=== PATIENT | female | born 1940 | race Caucasian/White ===

== ENCOUNTER 2017-10-26 07:02 | Day surgery (SDC) | payer OTHER ==
[~2017-10-26] VITALS: Ht 165.1 cm; Wt 63.3 kg
[2017-10-26] MEDS ORDERED: Aspirin EC81 MG (09:19)
[2017-10-26] MEDS ORDERED: ESCI20 (09:19)
[2017-10-26] MEDS ORDERED: DONE10 (09:19)
[2017-10-26] MEDS ORDERED: OMEPRAZOLE MAGN20 MG (09:20)
[2017-10-26] MEDS ORDERED: HYDCHL25 (09:20)
[2017-10-26] MEDS ORDERED: MEMA10 (09:20)
[2017-10-26] MEDS ORDERED: LOSARTAN POTAS100 MG (09:20)
== END 2017-10-26 09:16 | disposition home or self-care (01) ==
LOC: ORSCSDS 07:02
PROVIDERS: Ophthalmology
PROC: 08RK3JZ Replacement of Left Lens with Synthetic Substitute, Percutaneous Approach (ICD-10-PCS; principal; 2017-10-26 08:30)
DX: H25.12 Age-related nuclear cataract, left eye (principal); E11.9 Type 2 diabetes mellitus without complications; Z79.82 Long term (current) use of aspirin; Z79.84 Long term (current) use of oral hypoglycemic drugs; Z79.899 Other long term (current) drug therapy
CPT/HCPCS: 82947; J2250; J3010; J3301; V2632

== ENCOUNTER → 2017-11-14 | Outpatient (CLI) | payer OTHER ==
[~2017-11-14] MED LIST: Aspirin EC81 MG; DONE10; ESCI20; HYDCHL25; LOSARTAN POTAS100 MG; MEMA10; OMEPRAZOLE MAGN20 MG
[2017-11-14 19:30] LABS: Bilirubin, Urine Neg (Neg); Blood, Urine 1+ (Neg); Glucose Qualitative, Urine Neg (Neg); Ketones, Urine Neg (Neg); Leukocyte Esterase, Urine 3+ (Neg); Nitrite, Urine Pos (Neg); Protein, Urine 1+ (Neg); Specific Gravity, Urine 1.015 (1.003-1.022); Urobilinogen, Urine 1+ (Normal)
[2017-11-14 19:37] LABS: Appearance, Urine Clear (Clear); Color, Urine Yellow (P-Yellow)
[2017-11-14 19:38] LABS: White Blood Cells, Urine 25-50 /hpf (0-5)
[2017-11-14 19:39] LABS: Bacteria Many /hpf; Squamous Epithelial Cells Few /hpf (Few)
== END | disposition home or self-care (01) ==
LOC: LAB SHORT 15:00 → LAB 15:00
PROVIDERS: Internal Medicine
DX: N39.0 Urinary tract infection, site not specified (principal)
CPT/HCPCS: 81001; 87077; 87086; 87186

== ENCOUNTER 2018-01-01 17:28 | Observation (INO) | payer OTHER ==
[~2018-01-01] VITALS: Ht 165.1 cm; Wt 67.5 kg
[~2018-01-01 17:28] MED LIST changes: -Aspirin EC81 MG; +Aspirin EC81 MG PO; -DONE10; +DONE10 PO; -ESCI20; +ESCI20 PO; -HYDCHL25; +HYDCHL25 PO; -LOSARTAN POTAS100 MG; +LOSARTAN POTAS100 MG PO; -MEMA10; +MEMA10 PO; -OMEPRAZOLE MAGN20 MG; +OMEPRAZOLE MAGN20 MG PO
[2018-01-01 18:15] LABS: Source, Urine Catheter
[2018-01-01 18:19] LABS: Blood, Urine Neg (Neg); Glucose Qualitative, Urine Neg (Neg); Ketones, Urine Neg (Neg); Leukocyte Esterase, Urine Neg (Neg); Nitrite, Urine Neg (Neg); Protein, Urine 1+ (Neg); Urobilinogen, Urine 2+ (Normal)
[2018-01-01 18:20] LABS: BASOPHILS ABSOLUTE AUTO 0.02 K/mm3 (0.00-0.23); BASOPHILS PERCENT AUTO 0 % (0-2); EOSINOPHILS ABSOLUTE AUTO 0.14 K/mm3 (0.00-0.68); EOSINOPHILS PERCENT AUTO 2 % (0-6); Hematocrit 31.3 % (33.0-51.0); Hemoglobin 10.4 g/dL (11.5-16.0); IMMATURE GRAN ABSOLUTE AUTO 0.02 K/mm3 (0.00-0.10); IMMATURE GRAN PERCENT AUTO 0 % (0-1); LYMPHOCYTES ABSOLUTE AUTO 1.79 K/mm3 (0.84-5.20); LYMPHOCYTES PERCENT AUTO 21 % (21-46); MONOCYTES ABSOLUTE AUTO 0.91 K/mm3 (0.16-1.47); MONOCYTES PERCENT AUTO 11 % (4-13); Mean Corpuscular HGB 29.7 pg (26.0-34.0); Mean Corpuscular HGB Conc 33.2 g/dL (31.5-36.5); Mean Corpuscular Volume 89 fL (80-100); Mean Platelet Volume 8.7 fL (9.1-12.4); NEUTROPHILS ABSOLUTE AUTO 5.48 K/mm3 (1.96-9.15); NEUTROPHILS PERCENT AUTO 66 % (41-73); Platelet Count 155 K/mm3 (150-400); RDW Coefficient Variation 16.1 % (11.7-14.2); RDW Standard Deviation 53.3 fL (35.1-46.3); White Blood Cell Count 8.36 K/mm3 (4.00-11.30)
[2018-01-01 18:26] LABS: Appearance, Urine Clear (Clear); Color, Urine Yellow (P-Yellow)
[2018-01-01 18:32] LABS: Albumin, Blood 3.1 g/dL (3.4-5.0); Albumin/Globulin Ratio 0.8 (0.8-1.8); Bun/Creatinine Ratio 26.1 (12.0-20.0); Calcium, Blood 8.6 mg/dL (8.5-10.1); Creatinine, Blood 1.84 mg/dL (0.40-1.00); Globulin, Blood 3.7 g/dL (2.2-4.0); Potassium, Blood 3.9 mmol/L (3.5-5.5); Total Protein, Blood 6.8 g/dL (6.4-8.2)
[2018-01-02] MEDS ORDERED: MELA3 PO (01:08)
[2018-01-02] MEDS ORDERED: MIRALAX17 GM PO (01:10)
[2018-01-02] MEDS ORDERED: ACET325 PO (01:15)
[2018-01-02] MEDS ORDERED: BISA10S PR (01:16)
[2018-01-02] MEDS ORDERED: LOPE2C PO (01:17)
[2018-01-02] MEDS ORDERED: TUMS200 MG PO (01:18)
[2018-01-02 04:57] LABS: Hematocrit 30.6 % (33.0-51.0); Mean Corpuscular HGB 29.2 pg (26.0-34.0); Mean Corpuscular HGB Conc 32.7 g/dL (31.5-36.5); Mean Corpuscular Volume 90 fL (80-100); Mean Platelet Volume 8.9 fL (9.1-12.4); Platelet Count 124 K/mm3 (150-400); RDW Coefficient Variation 16.1 % (11.7-14.2); RDW Standard Deviation 53.6 fL (35.1-46.3); Red Blood Cell Count 3.42 M/mm3 (3.80-5.20); White Blood Cell Count 5.95 K/mm3 (4.00-11.30)
[2018-01-02 05:15] LABS: Albumin, Blood 2.9 g/dL (3.4-5.0); Albumin/Globulin Ratio 0.8 (0.8-1.8); Bilirubin, Total 1.1 mg/dL (0.1-1.0); Bun/Creatinine Ratio 31.6 (12.0-20.0); Calcium, Blood 8.4 mg/dL (8.5-10.1); Creatinine, Blood 1.33 mg/dL (0.40-1.00); Globulin, Blood 3.6 g/dL (2.2-4.0); Potassium, Blood 3.5 mmol/L (3.5-5.5); Total Protein, Blood 6.5 g/dL (6.4-8.2)
[2018-01-03 04:55] LABS: Albumin, Blood 2.9 g/dL (3.4-5.0); Anion Gap 9 mmol/L (6-16); Blood Urea Nitrogen 28 mg/dL (8-24); Bun/Creatinine Ratio 30.5 (12.0-20.0); CO2, Blood 23 mmol/L (21-32); Calcium, Blood 8.4 mg/dL (8.5-10.1); Chloride, Blood 108 mmol/L (98-108); Creatinine, Blood 0.92 mg/dL (0.40-1.00); Glomerular Filtration Rate >60 (60-); Glucose, Blood 134 mg/dL (70-99); Potassium, Blood 3.5 mmol/L (3.5-5.5); Sodium, Blood 140 mmol/L (136-145)
[2018-01-03] MEDS ORDERED: DONE5 PO (12:46)
[2018-01-03] MEDS ORDERED: ACET500 PO (12:46)
== END 2018-01-03 13:09 | disposition home or self-care (01) ==
LOC: ER 17:28 → MEDS 19:29 → ENPENDDIS 01-03 13:04 → MEDS 01-03 13:09
PROVIDERS: Emergency Medicine; Internal Medicine; Internal Medicine Endocrinology, Diabetes & Metabolism
DX: G92 Toxic encephalopathy (principal); N17.9 Acute kidney failure, unspecified; E86.0 Dehydration; F03.90 Unspecified dementia, unspecified severity, without behavioral disturbance, psychotic disturbance, mood disturbance, and anxiety; K21.9 Gastro-esophageal reflux disease without esophagitis; M25.511 Pain in right shoulder; I10 Essential (primary) hypertension; E11.65 Type 2 diabetes mellitus with hyperglycemia; R53.1 Weakness; S22.31XA Fracture of one rib, right side, initial encounter for closed fracture; S42.001A Fracture of unspecified part of right clavicle, initial encounter for closed fracture; Z79.82 Long term (current) use of aspirin; Z88.0 Allergy status to penicillin; Z79.899 Other long term (current) drug therapy; Z88.5 Allergy status to narcotic agent; Z88.8 Allergy status to other drugs, medicaments and biological substances
CPT/HCPCS: 36415; 71045; 73030; 80053; 80069; 82550; 82947; 83036; 85025; 85027; 96360; 96361; 96372; 96374; 96376; 97110; 97116; 97161; 97166; 99285; G0378; G0515; G8978; G8979; G8987; G8988; J1650; J3010; J7030; P9612

== ENCOUNTER → 2018-08-03 | Outpatient (CLI) | payer OTHER ==
[~2018-08-03] MED LIST changes: +ACET325 PO; +ACET500 PO; +BISA10S PR; +DONE5 PO; +LOPE2C PO; +MELA3 PO; +MIRALAX17 GM PO; +TUMS200 MG PO
[2018-08-04 11:22] LABS: Source, Urine Voided
[2018-08-04 11:38] LABS: Appearance, Urine Cloudy (Clear); Bilirubin, Urine Neg (Neg); Blood, Urine 1+ (Neg); Color, Urine Yellow (P-Yellow); Glucose Qualitative, Urine 3+ (Neg); Ketones, Urine Neg (Neg); Leukocyte Esterase, Urine 3+ (Neg); Nitrite, Urine Pos (Neg); Protein, Urine 2+ (Neg); Specific Gravity, Urine 1.015 (1.003-1.022); Urobilinogen, Urine NORM (Normal)
[2018-08-04 12:12] LABS: Amorphous Heavy ({null, 0-Heavy}); Bacteria Mod /hpf; Granular Casts Rare /lpf ({null, 0}); Red Blood Cells, Urine 0-2 /hpf (0-2); Squamous Epithelial Cells Few /hpf (Few); White Blood Cells, Urine 25-50 /hpf (0-5)
== END | disposition home or self-care (01) ==
LOC: LAB 17:00 → LAB SHORT 17:00
PROVIDERS: Internal Medicine
DX: N39.0 Urinary tract infection, site not specified (principal)
CPT/HCPCS: 81001; 87077; 87086; 87186

== ENCOUNTER → 2019-01-21 | Outpatient (CLI) | payer MEDICARE ==
[~2019-01-21] MED LIST changes: -ACET325 PO; +Anti-Diarrheal2 MG PO; -Aspirin EC81 MG PO; +BASAGLAR K100 UNIT/1 SC; +Calmoseptine Oi71 GM TOP; +Cetirizine HCl10 MG PO; -DONE5 PO; +DONEPEZIL HCL5 M1 PO; +Eucerin Creme454 GM TOP; +FIRVANQ50 MG/1 ML PO; +Florastor250 MG PO; +LOSA50 PO; -LOSARTAN POTAS100 MG PO; +Lasix40 MG PO; -MELA3 PO; +MELATONIN5 M1 PO; +METF500 PO; +Milk Of Ma400 MG/5 M PO; -OMEPRAZOLE MAGN20 MG PO; +OMEPRAZOLE20 MG PO; +ONE DAILY COMP1 EACH PO; +TRIDERM28.4 GM TOP; +TUMS500 MG PO; +Triple Antibio1 EACH TOP
[2019-01-21 16:07] LABS: BASOPHILS ABSOLUTE AUTO 0.02 K/mm3 (0.00-0.23); BASOPHILS PERCENT AUTO 0 % (0-2); EOSINOPHILS PERCENT AUTO 2 % (0-6); Hematocrit 33.3 % (33.0-51.0); Hemoglobin 10.9 g/dL (11.5-16.0); IMMATURE GRAN ABSOLUTE AUTO 0.01 K/mm3 (0.00-0.10); IMMATURE GRAN PERCENT AUTO 0 % (0-1); LYMPHOCYTES PERCENT AUTO 27 % (21-46); MONOCYTES ABSOLUTE AUTO 0.75 K/mm3 (0.16-1.47); MONOCYTES PERCENT AUTO 15 % (4-13); Mean Corpuscular HGB 30.3 pg (26.0-34.0); Mean Corpuscular HGB Conc 32.7 g/dL (31.5-36.5); Mean Corpuscular Volume 93 fL (80-100); Mean Platelet Volume 8.8 fL (9.1-12.4); NEUTROPHILS ABSOLUTE AUTO 2.73 K/mm3 (1.96-9.15); NEUTROPHILS PERCENT AUTO 56 % (41-73); Platelet Count 141 K/mm3 (150-400); RDW Standard Deviation 54.4 fL (35.1-46.3); White Blood Cell Count 4.91 K/mm3 (4.00-11.30)
[2019-01-21 17:11] LABS: Alanine Aminotransfer (ALT/SGP 29 U/L (12-78); Albumin, Blood 2.9 g/dL (3.4-5.0); Albumin/Globulin Ratio 0.8 (0.8-1.8); Alk Phos 138 U/L (50-136); Anion Gap 5 mmol/L (6-16); Aspartate Aminotrans (AST/SGOT 48 U/L (12-37); Bilirubin, Total 1.1 mg/dL (0.1-1.0); Blood Urea Nitrogen 8 mg/dL (8-24); Bun/Creatinine Ratio 11.4 (12.0-20.0); CO2, Blood 26 mmol/L (21-32); Calcium, Blood 8.7 mg/dL (8.5-10.1); Chloride, Blood 102 mmol/L (98-108); Globulin, Blood 3.5 g/dL (2.2-4.0); Glomerular Filtration Rate >60 (60-); Glucose, Blood 134 mg/dL (70-99); Potassium, Blood 3.5 mmol/L (3.5-5.5); Sodium, Blood 133 mmol/L (136-145); Total Protein, Blood 6.4 g/dL (6.4-8.2)
== END | disposition home or self-care (01) ==
LOC: LAB EV 16:01 → LAB SHORT 16:01
PROVIDERS: Physician Assistant
DX: L03.119 Cellulitis of unspecified part of limb (principal); R22.43 Localized swelling, mass and lump, lower limb, bilateral
CPT/HCPCS: 80053; 83880; 85025

== ENCOUNTER 2019-03-11 09:11 | Inpatient (IN) | payer MEDICARE ==
[~2019-03-11] VITALS: Ht 165.1 cm; Wt 69.5 kg
[~2019-03-11 09:11] MED LIST changes: -ACET500 PO; -Anti-Diarrheal2 MG PO; -BASAGLAR K100 UNIT/1 SC; -BISA10S PR; -Calmoseptine Oi71 GM TOP; -Cetirizine HCl10 MG PO; -DONEPEZIL HCL5 M1 PO; -ESCI20 PO; -Eucerin Creme454 GM TOP; -FIRVANQ50 MG/1 ML PO; -Florastor250 MG PO; -LOSA50 PO; -Lasix40 MG PO; -MELATONIN5 M1 PO; -MEMA10 PO; -METF500 PO; -MIRALAX17 GM PO; -Milk Of Ma400 MG/5 M PO; -OMEPRAZOLE20 MG PO; -ONE DAILY COMP1 EACH PO; -TRIDERM28.4 GM TOP; -TUMS500 MG PO; -Triple Antibio1 EACH TOP
[2019-03-11 10:03] LABS: BASOPHILS ABSOLUTE AUTO 0.02 K/mm3 (0.00-0.23); BASOPHILS PERCENT AUTO 0 % (0-2); EOSINOPHILS ABSOLUTE AUTO 0.03 K/mm3 (0.00-0.68); EOSINOPHILS PERCENT AUTO 0 % (0-6); Hematocrit 34.7 % (33.0-51.0); Hemoglobin 11.2 g/dL (11.5-16.0); IMMATURE GRAN ABSOLUTE AUTO 0.03 K/mm3 (0.00-0.10); IMMATURE GRAN PERCENT AUTO 0 % (0-1); LYMPHOCYTES ABSOLUTE AUTO 1.13 K/mm3 (0.84-5.20); LYMPHOCYTES PERCENT AUTO 15 % (21-46); MONOCYTES ABSOLUTE AUTO 0.84 K/mm3 (0.16-1.47); MONOCYTES PERCENT AUTO 11 % (4-13); Mean Corpuscular HGB 30.8 pg (26.0-34.0); Mean Corpuscular HGB Conc 32.3 g/dL (31.5-36.5); Mean Corpuscular Volume 95 fL (80-100); Mean Platelet Volume 9.2 fL (9.1-12.4); NEUTROPHILS ABSOLUTE AUTO 5.53 K/mm3 (1.96-9.15); NEUTROPHILS PERCENT AUTO 73 % (41-73); Platelet Count 121 K/mm3 (150-400); RDW Coefficient Variation 18.1 % (11.7-14.2); RDW Standard Deviation 63.6 fL (35.1-46.3); Red Blood Cell Count 3.64 M/mm3 (3.80-5.20); White Blood Cell Count 7.58 K/mm3 (4.00-11.30)
[2019-03-11 10:12] LABS: Alanine Aminotransfer (ALT/SGP 21 U/L (12-78); Albumin, Blood 2.7 g/dL (3.4-5.0); Albumin/Globulin Ratio 0.7 (0.8-1.8); Alk Phos 119 U/L (50-136); Anion Gap 7 mmol/L (6-16); Aspartate Aminotrans (AST/SGOT 43 U/L (12-37); Bilirubin, Total 2.1 mg/dL (0.1-1.0); Blood Urea Nitrogen 19 mg/dL (8-24); Bun/Creatinine Ratio 24.1 (12.0-20.0); CO2, Blood 24 mmol/L (21-32); Calcium, Blood 8.8 mg/dL (8.5-10.1); Chloride, Blood 112 mmol/L (98-108); Creatinine, Blood 0.79 mg/dL (0.40-1.00); Globulin, Blood 3.8 g/dL (2.2-4.0); Glomerular Filtration Rate >60 (60-); Glucose, Blood 119 mg/dL (70-99); Potassium, Blood 3.9 mmol/L (3.5-5.5); Sodium, Blood 143 mmol/L (136-145); Total Protein, Blood 6.5 g/dL (6.4-8.2)
[2019-03-11 11:10] LABS: Source, Urine Catheter
[2019-03-11 11:16] LABS: Bilirubin, Urine Neg (Neg); Blood, Urine 1+ (Neg); Glucose Qualitative, Urine Neg (Neg); Ketones, Urine 1+ (Neg); Leukocyte Esterase, Urine 2+ (Neg); Nitrite, Urine Pos (Neg); Protein, Urine 2+ (Neg); Urobilinogen, Urine 2+ (Normal); pH, Urine 6.5 (5.0-8.0)
[2019-03-11 11:31] LABS: Appearance, Urine Cloudy (Clear); Color, Urine Yellow (P-Yellow)
[2019-03-11 11:32] LABS: Red Blood Cells, Urine 0-2 /hpf (0-2)
[2019-03-11 11:33] LABS: Bacteria Many /hpf; Squamous Epithelial Cells Few /hpf (Few)
[2019-03-11] MEDS ORDERED: ESCI20 PO (12:27)
[2019-03-11] MEDS ORDERED: LOSA50 PO (12:28)
[2019-03-11] MEDS ORDERED: MEMA10 PO (12:28)
[2019-03-11] MEDS ORDERED: DONEPEZIL HCL5 M1 PO (12:29)
[2019-03-11] MEDS ORDERED: Lasix40 MG PO (12:29)
[2019-03-11] MEDS ORDERED: BASAGLAR K100 UNIT/1 SC (12:30)
[2019-03-11] MEDS ORDERED: METF500 PO (12:30)
[2019-03-11] MEDS ORDERED: OMEPRAZOLE20 MG PO (12:40)
[2019-03-11] MEDS ORDERED: MELATONIN5 M1 PO (12:40)
[2019-03-11] MEDS ORDERED: MIRALAX17 GM PO (12:40)
[2019-03-11] MEDS ORDERED: ACET500 PO (12:42)
[2019-03-11] MEDS ORDERED: BISA10S PR (12:42)
[2019-03-11] MEDS ORDERED: Cetirizine HCl10 MG PO (12:43)
[2019-03-11] MEDS ORDERED: ONE DAILY COMP1 EACH PO (12:47)
[2019-03-11] MEDS ORDERED: TRIDERM28.4 GM TOP (12:49)
[2019-03-11] MEDS ORDERED: Eucerin Creme454 GM TOP (12:49)
[2019-03-11] MEDS ORDERED: Triple Antibio1 EACH TOP (12:50)
[2019-03-11] MEDS ORDERED: TUMS500 MG PO (12:51)
[2019-03-11] MEDS ORDERED: Anti-Diarrheal2 MG PO (12:52)
[2019-03-11] MEDS ORDERED: Milk Of Ma400 MG/5 M PO (12:52)
[2019-03-11] MEDS ORDERED: Calmoseptine Oi71 GM TOP (12:53)
--- NOTE | 2019-03-11 16:38 | NUR ---
SHIFT SUMMARY: PT ADMITTED FROM THE ER THIS AFTERNOON AND IS ALERT TO SELF AND ABLE TO SAY "YES" AND "NO" AND DENIES PAIN. PER HER SON SHE HAS ADVANCED DEMENTIA AND LIVES AT [facility] WHERE SHE HAS HAD INCREASED CONFUSION AND WEAKNESS. PT HAS WOUNDS TO HER BLE WHICH THE SON REPORTS WERE BEING MANAGED BY [facility]. THE WOUNDS WERE CLEANSED AND CLEAN DRESSINGS WERE APPLIED, DR FOWLER GAVE VERBAL ORDER FOR HERNAN TO PROMOTE WOUND HEALING. ORAL CARE WAS COMPLETED PT DENTURES WERE CAKED IN OLD DRY FOOD AND PT REPORTS HER MOUTH WAS SORE DURING BRUSHING, THE SON WAS NOTIFIED.PT DECLINED HER FOOD TRAY BUT DID TAKE A FEW BITES OF THE PEACHES. PT IS INC. OF B/B. PT WAS REMINDED TO USE CALL LIGHT FOR HELP BUT WAS UNABLE TO VERBALIZE AN UNDERSTANDING OF ITS USE. BED ALARM IS IN PLACE. PT IS RESTING IN BED.
--- NOTE | 2019-03-11 19:26 | NUR ---
PATIENT PULLED IV AND SECOND IV PLACED BY DAY RN AND WRAPPED, PATIENT PULLED SECOND IV.
--- NOTE | 2019-03-12 03:07 | NUR ---
SHIFT SUMMARY PATIENT HAD NO ACUTE CHANGES OBSERVED THIS SHIFT. PULLED TWO PIVS ON DAY SHIFT. NEW PIV PLACED AND NS INFUSING AT 100mL/HR. IV ABX INFUSED. AXO TO SELF, HX DEMENTIA. CBG 110 AND BEDREST. TAKES MEDICATION WHOLE WITH WATER. DRESSING TO BLE INTACT. ANSWERS YES/NO QUESTIONS. DENIES PAIN, SOB, AND N/V. VSS/AFEBRILE. CALL LIGHT IN REACH. BED IN LOWEST POSITION. WILL CONTINUE TO MONITOR UNTIL DAY SHIFT NURSE ASSUMES CARE.
[2019-03-12 04:49] LABS: BASOPHILS ABSOLUTE AUTO 0.02 K/mm3 (0.00-0.23); BASOPHILS PERCENT AUTO 0 % (0-2); EOSINOPHILS PERCENT AUTO 5 % (0-6); Hematocrit 30.2 % (33.0-51.0); Hemoglobin 9.8 g/dL (11.5-16.0); IMMATURE GRAN ABSOLUTE AUTO 0.02 K/mm3 (0.00-0.10); IMMATURE GRAN PERCENT AUTO 0 % (0-1); LYMPHOCYTES ABSOLUTE AUTO 1.55 K/mm3 (0.84-5.20); LYMPHOCYTES PERCENT AUTO 26 % (21-46); MONOCYTES ABSOLUTE AUTO 0.77 K/mm3 (0.16-1.47); MONOCYTES PERCENT AUTO 13 % (4-13); Mean Corpuscular HGB 30.6 pg (26.0-34.0); Mean Corpuscular HGB Conc 32.5 g/dL (31.5-36.5); Mean Corpuscular Volume 94 fL (80-100); Mean Platelet Volume 9.7 fL (9.1-12.4); NEUTROPHILS PERCENT AUTO 56 % (41-73); Platelet Count 104 K/mm3 (150-400); RDW Coefficient Variation 18.3 % (11.7-14.2); RDW Standard Deviation 63.4 fL (35.1-46.3); White Blood Cell Count 6.06 K/mm3 (4.00-11.30)
[2019-03-12 05:07] LABS: Alanine Aminotransfer (ALT/SGP 16 U/L (12-78); Albumin, Blood 2.3 g/dL (3.4-5.0); Albumin/Globulin Ratio 0.7 (0.8-1.8); Alk Phos 95 U/L (50-136); Anion Gap 7 mmol/L (6-16); Aspartate Aminotrans (AST/SGOT 34 U/L (12-37); Bilirubin, Total 1.4 mg/dL (0.1-1.0); Blood Urea Nitrogen 22 mg/dL (8-24); Bun/Creatinine Ratio 28.4 (12.0-20.0); CO2, Blood 24 mmol/L (21-32); Calcium, Blood 8.2 mg/dL (8.5-10.1); Chloride, Blood 114 mmol/L (98-108); Creatinine, Blood 0.78 mg/dL (0.40-1.00); Globulin, Blood 3.4 g/dL (2.2-4.0); Glomerular Filtration Rate >60 (60-); Glucose, Blood 76 mg/dL (70-99); Potassium, Blood 3.5 mmol/L (3.5-5.5); Sodium, Blood 145 mmol/L (136-145); Total Protein, Blood 5.7 g/dL (6.4-8.2)
--- NOTE | 2019-03-12 16:51 | NUR ---
SHIFT SUMMARY: PT HAS BEEN ALERT TO SELF AT BASELINE WITH ONGOING CONFUSION. SHE IS PLEASANT AND COOPERATIVE WITH CARE BUT REMOVED HER IV LINE AGAIN TODAY. WAS NOTIFIED AND RECEIVED ORDERS TO DC IV FLUIDS AND MEDS AND START ON PO ABO. DRESSING TO BLE WERE CHANGED WITH DR SOTO AT THE BEDSIDE AND RECEIVED VERBAL ORDERS FOR TX REFLECTED ON THE MAR. PT CONTINUES TO HAVE A POOR APPETITE BUT DID EAT A SMALL AMOUNT FOR HER MEALS WITH SOME ENCOURAGEMENT. SON HAS VISITED A FEW TIMES TODAY AND CONTINUES TO BE AN ADVACATE FOR HIS MOM. SOME EDUCATION WAS COMPLETED WITH SON AND PT ABOUT NUTRITION TO HELP WITH WOUND HEALING. PT WORKED WITH THERAPY TODAY AND WAS ABLE TO AMBULATE WITH A FWW. PT WAS UP TO RECLINER IN HALLWAY MOST OF THE AFTERNOON AND PT IS NOW UP IN RECLINER WATCHING TV WITH HER SON.
--- NOTE | 2019-03-13 05:41 | NUR ---
SUMMARY: PT IS ALERT TO SELF AND PLEASANT/COOPERATIVE W/CARE BUT IS FORGETFULL AND IMPULLSIVE OOB OFTEN. SHE SPENDS TIME IN THE RECLINER AND IS UP W/SBA AND FWW. ATTENDS CHANGED PRN FOR INCONTINENCE AND X2 LINEN CHANGES WERE REQUIRED. CELLULITIS PERSISTS TO BLE'S, SEE PHOTOS FOR DETAILS AND DX'S REMAIN C/D/I. PO ABX RECIEVED AND ENCOURAGED PO INTAKE FOR WOUND HEALING. NO ACUTE CHANGES. VSS AND AFEBRILE. WCTM AND REPORT TO DAY RN.
--- NOTE | 2019-03-13 17:37 | NUR ---
SHIFT SUMMARY: PT HAS BEEN ALERT AND ORIENTED AT BASELINE BUT MUCH MORE RELAXED TODAY. SHE HAS BEEN UP AMBUALTING IN THE GREEN WITH PT AND NURSING STAFF AND DOES NOT APPEAR TO HAVE ANY ISSUES WITH AMBULATION SHE DOES NEED QUEING FOR SAFETY AWARENESS. PT CONTINUES TO BE INC OF B/B BUT DOES USE THE TOILET IF OFFERED. DRESSINGS TO BLE WERE CHANGED AND SHOW IMPROVEMENT FROM YESTERDAY, DR SOTO WAS MADE AWARE. PT WAS UP WITH NURSING STAFF COLORING FOR MOST OF THE AFTERNOON AND THEN HAD A SHORT VISIT WITH HER SON. SHE IS NOW RESTING IN BED WATCHING TV.
--- NOTE | 2019-03-14 03:48 | NUR ---
SUMMARY: PT HAS BEEN MORE ORIENTED THIS SHIFT, IS PLEASANT AND COOPERATIVE W/CARE AND IS INTERACTING W/STAFF APPROPRIATELY. STRENGTH HAS IMPROVED AND SHE'S BEEN AMBULATING IN ROOM AND HALLS W/STEADY GAIT OBSERVED AND ONLY OCCASIONAL NEED FOR VERBAL CUES FOR SAFETY AWARENESS. PT HAS USED TOILET W/STAFF ASSIST WHEN PROMPTED BUT OTHERWISE HAS BEEN INCONTINENT W/ATTENDS CHANGED PRN. BLE'S DX'S REMAIN C/D/I AND DAY RN REPORTED VAST IMPROVEMENT W/CURRENT WOUND CARE ORDERS OVER PAST 24HRS. MD WANTS TO ENSURE CURRENT REGIMEN AND DAILY DX CHANGES ARE FOLLOWED UPON D/C TO MAINTAIN PROGRESS. PT WILL LIKELY RETURN TO [place] THIS AM. SHE SLEPT MOST OF NOCTE AND WAS ONLY UP TO FOR TOILETING. NO ACUTE CHANGES, VSS/AFEBRILE. WCTM/REPORT TO DAY RN.
--- NOTE | 2019-03-14 10:50 | NUR ---
PT ALSO NOTED TO HAVE LIQUID STOOL. DR ALAMO ORDERS C DIFF R/O, SAMPLE SENT. PT TO D/C IF C DIFF NEG.
[2019-03-14 11:44] LABS: C DIFFICILE BY DNA AMP Positive (Negative)
--- NOTE | 2019-03-14 14:09 | NUR ---
PHYSICAL THERAPIST IN TO SEE PT. ACCORDING TO HER, PT MOBILITY HAS SIGNIFICANTLY DECLINED SINCE YESTERDAY. PT IS UNABLE TO SIT AT SIDE OF BED WITHOUT FALLING OVER, MOSTLY NONVERBAL AND HAS BEEN REFUSING FOOD. VSS, BESIDES LOW GRADE FEVER OF 100.2. REPORTED TO DR SOTO, ORDERS D5W1/2 NS @ 75 ML/HR AND SWALLOW EVAL.
--- NOTE | 2019-03-14 18:08 | NUR ---
SHIFT SUMMARY DRESSING CHANGES TO BLE COMPLETE AT [address] SOTO AT BEDSIDE. WOUNDS HAVE SIGNIFICANTLY IMPROVED, SEE PICTURES IN CHART ON ADMISSION VS PICS TAKEN TODAY. PT DENIES ANY PAIN TO BLE. PT MENTATION AND STRENGTH HAS SIGNIFCANTLY DECERASED ACCORDING TO NOTES AND PHYSICAL THERAPIST. PT UNABLE TO SIT AT EDGE OF BED, MOSTLY NONVERBAL. HAS NOT EATEN BREAKFAST OR LUNCH, HOWEVER, DINNER IS SET UP AND PT IS PICKING AT IT, CURRENTLY EATING THE PEACHES. D5W RUNNING @ 75 ML/HR. ABX DC'D AND VANCO STARTED PT IS C DIFF POS. WILL CONT TO MONITOR AND PROVIDE CARE UNTIL PRESUMED BY ONCOMING RN.
--- NOTE | 2019-03-15 04:41 | NUR ---
SHIFT SUMMARY PT CONTINUES TO HAVE LOOSE BM'S. PT BUTTOCKS ARE RED AND BARRIER CREAM IS BEING APPLIED. PT HAD NO COMPLAINTS OR ISSUES NOTED. PT HAS SLEPT ON AND OFF T/O SHIFT. PT REMAINED AFEBRILE THIS SHIFT. PT IS WEAK T/O AND REMAINED IN BED T/O SHIFT. PT CURRENTLY AWAKE WATCHING TV. CALL LIGHT IN REACH AND BED ALARM ON.
[2019-03-15 11:24] LABS: BASOPHILS ABSOLUTE AUTO 0.04 K/mm3 (0.00-0.23); BASOPHILS PERCENT AUTO 0 % (0-2); EOSINOPHILS ABSOLUTE AUTO 0.41 K/mm3 (0.00-0.68); EOSINOPHILS PERCENT AUTO 3 % (0-6); Hematocrit 35.3 % (33.0-51.0); Hemoglobin 11.4 g/dL (11.5-16.0); IMMATURE GRAN ABSOLUTE AUTO 0.05 K/mm3 (0.00-0.10); IMMATURE GRAN PERCENT AUTO 0 % (0-1); LYMPHOCYTES ABSOLUTE AUTO 2.19 K/mm3 (0.84-5.20); LYMPHOCYTES PERCENT AUTO 17 % (21-46); MONOCYTES ABSOLUTE AUTO 1.02 K/mm3 (0.16-1.47); MONOCYTES PERCENT AUTO 8 % (4-13); Mean Corpuscular HGB 31.8 pg (26.0-34.0); Mean Corpuscular HGB Conc 32.3 g/dL (31.5-36.5); Mean Platelet Volume 9.1 fL (9.1-12.4); NEUTROPHILS ABSOLUTE AUTO 9.07 K/mm3 (1.96-9.15); NEUTROPHILS PERCENT AUTO 71 % (41-73); Platelet Count 156 K/mm3 (150-400); RDW Coefficient Variation 18.6 % (11.7-14.2); RDW Standard Deviation 67.4 fL (35.1-46.3); Red Blood Cell Count 3.59 M/mm3 (3.80-5.20); White Blood Cell Count 12.78 K/mm3 (4.00-11.30)
[2019-03-15 11:30] LABS: Mean Corpuscular Volume 98 fL (80-100)
[2019-03-15 11:40] LABS: Anion Gap 10 mmol/L (6-16); Blood Urea Nitrogen 29 mg/dL (8-24); Bun/Creatinine Ratio 36.1 (12.0-20.0); CO2, Blood 20 mmol/L (21-32); Calcium, Blood 7.6 mg/dL (8.5-10.1); Chloride, Blood 115 mmol/L (98-108); Glomerular Filtration Rate >60 (60-); Glucose, Blood 191 mg/dL (70-99); Potassium, Blood 2.9 mmol/L (3.5-5.5); Sodium, Blood 145 mmol/L (136-145)
--- NOTE | 2019-03-15 17:38 | NUR ---
PT HAS BEEN DOING WELL TODAY AOX2 AND COOPERATIVE OF CARE. PT HAS MOMENTS OF INCREASED CONFUSION AND WILL THEN SEEM A BIT MORE CLEAR. PT HAS BEEN REQUESTING TO USE COMODE AND HAS ALSO BEEN INCONTENT A COUPLE TIMES TODAY WITH LOOSE BMs. BMs HAVE NOT BEEN FREQUENT TODAY AND ARE STARTING TO IMPROVE. BANDAGES ON LE CHANGED AND PT TOLERATING WELL. PT RESTING IN BED AT THIS TIME WILL CONTINUE TO MONITOR.
--- NOTE | 2019-03-16 02:16 | NUR ---
03/16/19 0205 PT TRYING TO SIT ON SIDE OF BED. ASSISTED UP TO BSC AFTER MODERATE LIQUID YELLOW BM IN BRIEF NOTED. NO FURTHER BM. ROBERT-CARE GIVEN AND ASSISTED BACK TO BED. OFFERED ORAL FLUIDS BUT DECLINED. BED ALARM ON.
[2019-03-16 05:10] LABS: BASOPHILS ABSOLUTE AUTO 0.03 K/mm3 (0.00-0.23); BASOPHILS PERCENT AUTO 0 % (0-2); EOSINOPHILS ABSOLUTE AUTO 0.48 K/mm3 (0.00-0.68); EOSINOPHILS PERCENT AUTO 7 % (0-6); Hemoglobin 10.6 g/dL (11.5-16.0); IMMATURE GRAN ABSOLUTE AUTO 0.03 K/mm3 (0.00-0.10); IMMATURE GRAN PERCENT AUTO 0 % (0-1); LYMPHOCYTES ABSOLUTE AUTO 1.85 K/mm3 (0.84-5.20); LYMPHOCYTES PERCENT AUTO 26 % (21-46); MONOCYTES ABSOLUTE AUTO 0.76 K/mm3 (0.16-1.47); MONOCYTES PERCENT AUTO 11 % (4-13); Mean Corpuscular HGB 30.9 pg (26.0-34.0); Mean Corpuscular HGB Conc 32.1 g/dL (31.5-36.5); Mean Corpuscular Volume 96 fL (80-100); Mean Platelet Volume 9.9 fL (9.1-12.4); NEUTROPHILS ABSOLUTE AUTO 4.08 K/mm3 (1.96-9.15); NEUTROPHILS PERCENT AUTO 57 % (41-73); Platelet Count 129 K/mm3 (150-400); RDW Coefficient Variation 18.5 % (11.7-14.2); RDW Standard Deviation 64.9 fL (35.1-46.3); Red Blood Cell Count 3.43 M/mm3 (3.80-5.20); White Blood Cell Count 7.23 K/mm3 (4.00-11.30)
--- NOTE | 2019-03-16 05:19 | NUR ---
03/16/19 0510 PT AWKE AND WATCHING TV. DENIES ANY DISCOMFORT OR PROBLEMS. CHEERFUL AND COOPERATIVE THIS AM FOR MEDS AND LAB DRAWS. VITALS STABLE. DRESSINGS TO BOTH LOWER LEGS REMAIN INTACT AND DRY. PT HAS TO BE ENCOURAGED TO EAT AND DRINK, JUICE GIVEN THIS AM.
[2019-03-16 05:51] LABS: Anion Gap 10 mmol/L (6-16); Blood Urea Nitrogen 25 mg/dL (8-24); Bun/Creatinine Ratio 39.4 (12.0-20.0); CO2, Blood 20 mmol/L (21-32); Calcium, Blood 8.4 mg/dL (8.5-10.1); Chloride, Blood 116 mmol/L (98-108); Creatinine, Blood 0.64 mg/dL (0.40-1.00); Glomerular Filtration Rate >60 (60-); Glucose, Blood 126 mg/dL (70-99); Potassium, Blood 3.4 mmol/L (3.5-5.5); Sodium, Blood 146 mmol/L (136-145)
--- NOTE | 2019-03-16 17:20 | NUR ---
PT AOX2 WITH CONFUSION. PT HAS BEEN COOPERATIVE OF CARE, BUT VERY IMPULSIVE TODAY. PT HAS SET OF BED AND CHAIR ALARMS CONSTANTLY THROUGHOUT THE DAY. PT REDIRECTS, BUT FORGETS WHY SHE NEEDS TO BE SITTING. PT HAS BEEN TAKEN FOR WALKS BY NURSES AND PHYSICAL THERAPY TODAY. PT HAS HAD HER SON HERE TO VISIT. PT SITTING IN BED AT THIS TIME WILL CONTINUE TO MONITOR.
--- NOTE | 2019-03-16 18:30 | NUR ---
LE BANDAGES WERE CHANGED LOOKING VERY GOOD. DR DEJESUS WANTS BANDAGES REMOVED TOMORROW AND SKIN TO BE OPEN TO AIR. PT TOLERATED WELL.
[2019-03-17 05:10] LABS: BASOPHILS ABSOLUTE AUTO 0.04 K/mm3 (0.00-0.23); BASOPHILS PERCENT AUTO 1 % (0-2); EOSINOPHILS ABSOLUTE AUTO 0.43 K/mm3 (0.00-0.68); EOSINOPHILS PERCENT AUTO 7 % (0-6); Hemoglobin 10.5 g/dL (11.5-16.0); IMMATURE GRAN ABSOLUTE AUTO 0.03 K/mm3 (0.00-0.10); IMMATURE GRAN PERCENT AUTO 1 % (0-1); LYMPHOCYTES ABSOLUTE AUTO 1.64 K/mm3 (0.84-5.20); LYMPHOCYTES PERCENT AUTO 28 % (21-46); MONOCYTES ABSOLUTE AUTO 0.59 K/mm3 (0.16-1.47); MONOCYTES PERCENT AUTO 10 % (4-13); Mean Corpuscular HGB 31.4 pg (26.0-34.0); Mean Corpuscular HGB Conc 31.8 g/dL (31.5-36.5); Mean Platelet Volume 9.5 fL (9.1-12.4); NEUTROPHILS ABSOLUTE AUTO 3.22 K/mm3 (1.96-9.15); NEUTROPHILS PERCENT AUTO 54 % (41-73); Platelet Count 142 K/mm3 (150-400); RDW Standard Deviation 65.2 fL (35.1-46.3); Red Blood Cell Count 3.34 M/mm3 (3.80-5.20); White Blood Cell Count 5.95 K/mm3 (4.00-11.30)
[2019-03-17 05:11] LABS: Mean Corpuscular Volume 99 fL (80-100)
--- NOTE | 2019-03-17 05:24 | NUR ---
Rn summary: Patient is confused and impulsive, moderately directable. Pt was restless and up and down the first few hours of shift. Pt then slept well until 0530. Pt has had 2 loose incontinent stools. Bottom is discolored at lowest portion, cream applied. No open areas noted. Pt takes her pills crushed in applesauce. Pt is cooperative and pleasant. Bed alarm on. Call light in reach.
[2019-03-17 05:33] LABS: Albumin, Blood 2.3 g/dL (3.4-5.0); Anion Gap 7 mmol/L (6-16); Blood Urea Nitrogen 19 mg/dL (8-24); Bun/Creatinine Ratio 31.7 (12.0-20.0); CO2, Blood 21 mmol/L (21-32); Calcium, Blood 8.6 mg/dL (8.5-10.1); Chloride, Blood 115 mmol/L (98-108); Glomerular Filtration Rate >60 (60-); Glucose, Blood 90 mg/dL (70-99); Phosphorus, Blood 2.7 mg/dL (2.5-4.9); Potassium, Blood 3.8 mmol/L (3.5-5.5); Sodium, Blood 143 mmol/L (136-145)
--- NOTE | 2019-03-17 16:45 | NUR ---
AGITATION: PATIENT STARTED TO HAVE SOME AGITATION AND RESTLESSNESS. PATIENT UP AND DOWN FROM HER CHAIR. STARTED REPEATING HERSELF THAT SHE NEEDED TO GO HOME AFTER REDIRECTION. AMBULATED WITH PATIENT IN THE GREEN, HELPED PATIENT INTO BED, PROVIDED WITH A WARM BLANKET, SHOWER CAP AND MEDICATED FOR FACE SCALE OF 4 WITH TYLENOL. PATIENT RESTING COMFORTABLY IN BED.
--- NOTE | 2019-03-17 17:35 | NUR ---
END OF SHIFT SUMMARY: PATIENT SEEMS TO BE AT BASELINE OF ORIENTATION, CONFIRMED BY FAMILY. FAMILY REPORTS THAT PATIENT'S MOBILITY HAS IMPROVED. PATIENT STEADY ON HER FEET. AMBULATED WITH STAFF MULTIPLE TIMES IN THE HALLWAY. PATIENT IS CALM AND COOPERATIVE. REDIRECTABLE WITH CONFUSION. PATIENT WAS MILDLY AGITATED THIS AFTERNOON ABOUT LEAVING TO GO HOME. PROVIDED WITH A WARM BLANKET, SHOWER CAP AND MEDICATED FOR PAIN PER DISCOMFORT. PATIENT CALM FOR THE REST OF THE EVENING. PATIENT HAS PULLED OUT MULTIPLE IV'S. DISCUSSED WITH DR. DEJESUS. PATIENT DOES REQUIRE THE IV VANCOMYOCIN AT THIS TIME. WILL CONTINUE TO PROVIDE INTERVENTIONS TO MAINTAIN IV SITE (COBAN, TAPE, DISTRACTION). PATIENT CONTINUES TO HAVE LOOSE STOOL. ONE WAS INCONTINENT. PATIENT DENIES NAUSEA OR ABDOMINAL DISCOMFORT. DOES NOT HAVE SIGNS OR SYMPTOMS OF DISCOMFORT.
--- NOTE | 2019-03-18 05:30 | NUR ---
SHIFT SUMMARY PATIENT ORIENTED TO SELF ONLY. PATIENT AMBULATING IN ROOM AND DISCOVERED WANDERING IN HALLWAY MULTIPLE TIMES. PATIENT INCONTINENT BUT ALSO USES BATHROOM. PATIENT SLEPT MOST OF THE NIGHT. LEFT WRIST IV PATENT WITH NO S/S OF INFECTION.
[2019-03-18 05:34] LABS: Vancomycin, Trough 14.7 ug/mL (5.0-10.0)
--- NOTE | 2019-03-18 10:03 | NUR ---
GLUCOPHAGE: PATIENT HAS AN EXTENDED RELEASE FORM OF GLUCOPHAGE ORDERED. SPOKE WITH DR. DEJESUS ABOUT PATIENT REQUIRING MEDICATIONS TO BE CRUSHED. NEW ORDER FOR NON-EXTENDED RELEASE GLUCOPHAGE.
--- NOTE | 2019-03-18 18:17 | NUR ---
END OF SHIFT SUMMARY: PATIENT COMFORTABLE THROUGHOUT SHIFT. CONTINUES TO HAVE LOOSE STOOL. PATIENT DENIES ABDOMINAL DISCOMFORT. PATIENT UP IN ROOM. PATIENT STEADY ON HER FEET. PATIENT CONTINUES TO NEED TO BE REDIRECTED BACK TO HER ROOM. PATIENT PLESEANT AND COOPERATIVE. BLE CELLULITIS APPEARS TO BE IMPROVED OVER YESTERDAY (LESS RED). SKIN WAS C/D/I THROUGHOUT THE SHIFT.
--- NOTE | 2019-03-18 19:27 | NUR ---
IV VANCOMYOCIN: DURING ROUNDING, DR. DEJESUS REPORTED TO THE RN THAT THE IV VANCO WAS NO LONGER NEEDED. IN HIS PLAN OF CARE, HE MAKES NOTE THAT THE CELLULITIS IS RESOLVED AND THE IV VANCO CAN BE DISCONTINUED. NO ORDER WAS PLACED DURING THE DAY. NOTICED AT CHANGE OF SHIFT. DISCUSSED WITH DR. TUCKER. NEW ORDERS TO FOLLOW.
[2019-03-19 04:45] LABS: BASOPHILS ABSOLUTE AUTO 0.03 K/mm3 (0.00-0.23); BASOPHILS PERCENT AUTO 0 % (0-2); EOSINOPHILS ABSOLUTE AUTO 0.32 K/mm3 (0.00-0.68); EOSINOPHILS PERCENT AUTO 4 % (0-6); Hemoglobin 10.5 g/dL (11.5-16.0); IMMATURE GRAN ABSOLUTE AUTO 0.03 K/mm3 (0.00-0.10); IMMATURE GRAN PERCENT AUTO 0 % (0-1); LYMPHOCYTES ABSOLUTE AUTO 1.93 K/mm3 (0.84-5.20); LYMPHOCYTES PERCENT AUTO 24 % (21-46); MONOCYTES ABSOLUTE AUTO 0.91 K/mm3 (0.16-1.47); MONOCYTES PERCENT AUTO 11 % (4-13); Mean Corpuscular HGB 30.5 pg (26.0-34.0); Mean Corpuscular HGB Conc 31.8 g/dL (31.5-36.5); Mean Platelet Volume 9.4 fL (9.1-12.4); NEUTROPHILS ABSOLUTE AUTO 4.94 K/mm3 (1.96-9.15); NEUTROPHILS PERCENT AUTO 60 % (41-73); Platelet Count 162 K/mm3 (150-400); RDW Coefficient Variation 17.7 % (11.7-14.2); RDW Standard Deviation 62.1 fL (35.1-46.3); Red Blood Cell Count 3.44 M/mm3 (3.80-5.20); White Blood Cell Count 8.16 K/mm3 (4.00-11.30)
[2019-03-19 04:46] LABS: Mean Corpuscular Volume 96 fL (80-100)
[2019-03-19 05:12] LABS: Albumin, Blood 2.6 g/dL (3.4-5.0); Anion Gap 6 mmol/L (6-16); Blood Urea Nitrogen 23 mg/dL (8-24); Bun/Creatinine Ratio 39.2 (12.0-20.0); CO2, Blood 23 mmol/L (21-32); Chloride, Blood 113 mmol/L (98-108); Creatinine, Blood 0.59 mg/dL (0.40-1.00); Glomerular Filtration Rate >60 (60-); Glucose, Blood 91 mg/dL (70-99); Phosphorus, Blood 3.5 mg/dL (2.5-4.9); Potassium, Blood 4.2 mmol/L (3.5-5.5); Sodium, Blood 142 mmol/L (136-145)
--- NOTE | 2019-03-19 05:19 | NUR ---
SHIFT SUMMARY PATIENT UP TO BATHROOM MULTIPLE TIMES THROUGHT THE SHIFT. INCONTINENT OF BOWEL AND BLADDER. STOOLS LOOSE, BROWN. PATIENT ORIENTED TO SELF ONLY. PATIENT REDIRECTABLE BUT OUT OF BED REPEATEDLY. BED ALARM IN PLACE. PATIENT TOOK MEDICATIONS CRUSHED IN APPLESAUCE WITHOUT ISSUE. NO IV IN PLACE. PREVIOUS NURSE STATED NO IV NEEDED AND SPOKE WITH HOSPITALIST ABOUT DC OF IV ANTIBIOTICS.
--- NOTE | 2019-03-19 17:48 | NUR ---
SHIFT SUMMARY PT HAS BEEN AMBULATING IN ROOM ALL SHIFT. NO COMPLAINTS OF PAIN OR NAUSEA THIS SHIFT. PT TOOK A SHOWER WITH SWITCHBOARD INSTALLER ASSISTANCE. NO STOOLS THIS SHIFT. PT HAD A SMEAR THIS AM BUT NO OTHER BM'S AT THIS SHIFT. NO ACUTE CHANGES THIS SHIFT. CALL LIGHT IN REACH. WILL CONTINUE TO MONITOR AND REPORT TO ONCOMING RN.
--- NOTE | 2019-03-20 06:01 | NUR ---
SHIFT SUMMARY NO ACUTE EVENTS OVERNIGHT. PATIENT UP TO BATHROOM X3 DURING THE NOC SHIFT. PATIENT SLEPT MAJORITY OF THE SHIFT. INCONTINENT. WILL MONITOR AND REPORT TO ON OMING NURSE.
[2019-03-20] MEDS ORDERED: Florastor250 MG PO (12:52)
[2019-03-20] MEDS ORDERED: FIRVANQ50 MG/1 ML PO (12:54)
--- NOTE | 2019-03-20 17:20 | NUR ---
1710 PATIENT READY FOR DISCHARGE. PAPERS SENT TO FACILITY. SON ETA 1700. NO IV ACCESS. PATIENT DRESSED BY NURSE. NURSE WILL GIVE SON PATIENTS DISCHARGE FOLDER. ANA MADE FOLLOW UP FOR PATIENT.
== END 2019-03-20 17:35 | disposition home health service (06) | DRG 603 ==
LOC: ER 09:11 → MEDS 12:58 → ENPENDDIS 03-20 11:48 → MEDS 03-20 17:35
PROVIDERS: Emergency Medicine; Internal Medicine; Internal Medicine Gastroenterology; Pharmacist; ADMIT Family Medicine
DX: L03.116 Cellulitis of left lower limb (principal); N39.0 Urinary tract infection, site not specified; L97.919 Non-pressure chronic ulcer of unspecified part of right lower leg with unspecified severity; L97.929 Non-pressure chronic ulcer of unspecified part of left lower leg with unspecified severity; A04.72 Enterocolitis due to Clostridium difficile, not specified as recurrent; E87.2 Acidosis; E87.0 Hyperosmolality and hypernatremia; G93.49 Other encephalopathy; L03.115 Cellulitis of right lower limb; B95.62 Methicillin resistant Staphylococcus aureus infection as the cause of diseases classified elsewhere; B95.2 Enterococcus as the cause of diseases classified elsewhere; B96.20 Unspecified Escherichia coli [E. coli] as the cause of diseases classified elsewhere; I83.009 Varicose veins of unspecified lower extremity with ulcer of unspecified site; E11.22 Type 2 diabetes mellitus with diabetic chronic kidney disease; E11.65 Type 2 diabetes mellitus with hyperglycemia; I12.9 Hypertensive chronic kidney disease with stage 1 through stage 4 chronic kidney disease, or unspecified chronic kidney disease; N18.3 Chronic kidney disease, stage 3 (moderate); K21.9 Gastro-esophageal reflux disease without esophagitis; G30.9 Alzheimer's disease, unspecified; F02.80 Dementia in other diseases classified elsewhere, unspecified severity, without behavioral disturbance, psychotic disturbance, mood disturbance, and anxiety; F32.9 Major depressive disorder, single episode, unspecified; E86.0 Dehydration; E87.6 Hypokalemia; Z66 Do not resuscitate; Z85.820 Personal history of malignant melanoma of skin; Z79.82 Long term (current) use of aspirin; Z79.899 Other long term (current) drug therapy; Z88.5 Allergy status to narcotic agent; Z88.0 Allergy status to penicillin
CPT/HCPCS: 36415; 80048; 80053; 80069; 80202; 81001; 82947; 83605; 85025; 87040; 87070; 87075; 87077; 87086; 87147; 87186; 87205; 87324; 87493; 92610; 96365; 97116; 97161; 97530; 99285-25; A9270; J0690; J1650; J3370; J3480; J7030; J7042; J7050; P9612

== ENCOUNTER → 2019-05-30 | Outpatient (CLI) | payer MEDICARE ==
[~2019-05-30] MED LIST changes: +ACET500 PO; +Anti-Diarrheal2 MG PO; +BASAGLAR K100 UNIT/1 SC; +BISA10S PR; +CEPH500 PO; +Calmoseptine Oi71 GM TOP; +Cetirizine HCl10 MG PO; +DONEPEZIL HCL5 M1 PO; +ESCI20 PO; +Eucerin Creme454 GM TOP; +FAMO20 PO; +FIRVANQ50 MG/1 ML PO; +FURO40 PO; +Florastor250 MG PO; +LOSA50 PO; +Lasix40 MG PO; +MELATONIN5 M1 PO; +MEMA10 PO; +METF500 PO; +MIRALAX17 GM PO; +Milk Of Ma400 MG/5 M PO; +NITR100CA PO; +NYSTRITC TOP; +OMEPRAZOLE20 MG PO; +ONE DAILY COMP1 EACH PO; +POTCHL20ER PO; +TRIDERM28.4 GM TOP; +TUMS500 MG PO; +Triple Antibio1 EACH TOP
[2019-05-31 14:23] LABS: Bilirubin, Urine Neg (Neg); Blood, Urine 4+ (Neg); Glucose Qualitative, Urine 4+ (Neg); Ketones, Urine 1+ (Neg); Leukocyte Esterase, Urine 3+ (Neg); Nitrite, Urine Pos (Neg); Protein, Urine 2+ (Neg); Urobilinogen, Urine 2+ (Normal)
[2019-05-31 14:43] LABS: Appearance, Urine Hazy (Clear); Color, Urine Yellow (P-Yellow)
[2019-05-31 14:44] LABS: Bacteria Many /hpf; Squamous Epithelial Cells Mod /hpf (Few)
== END | disposition home or self-care (01) ==
LOC: LAB 20:00 → LAB SHORT 20:00
PROVIDERS: Internal Medicine
DX: N39.0 Urinary tract infection, site not specified (principal)
CPT/HCPCS: 81001; 87077; 87086; 87186

== ENCOUNTER 2019-06-05 15:45 | Inpatient (IN) | payer MEDICARE ==
[~2019-06-05] VITALS: Ht 165.1 cm; Wt 61.7 kg
[~2019-06-05 15:45] MED LIST changes: -CEPH500 PO; -FAMO20 PO; -FURO40 PO; -NITR100CA PO; -NYSTRITC TOP; -POTCHL20ER PO
[2019-06-05] MEDS ORDERED: FURO40 PO (16:09)
[2019-06-05] MEDS ORDERED: POTCHL20ER PO (16:12)
[2019-06-05] MEDS ORDERED: NITR100CA PO (16:12)
[2019-06-05] MEDS ORDERED: NYSTRITC TOP (16:13)
[2019-06-05 19:42] LABS: Anion Gap 8 mmol/L (6-16); Blood Urea Nitrogen 39 mg/dL (8-24); Bun/Creatinine Ratio 52.5 (12.0-20.0); CO2, Blood 23 mmol/L (21-32); CPK Creatine Kinase 48 U/L (26-193); Calcium, Blood 9.1 mg/dL (8.5-10.1); Chloride, Blood 124 mmol/L (98-108); Creatinine, Blood 0.74 mg/dL (0.40-1.00); Glomerular Filtration Rate >60 (60-); Glucose, Blood 348 mg/dL (70-99); Potassium, Blood 3.9 mmol/L (3.5-5.5); Sodium, Blood 155 mmol/L (136-145)
[2019-06-06] MEDS ORDERED: ACET500 PO (01:29)
--- NOTE | 2019-06-06 05:49 | NUR ---
SHIFT SUMMARY PT NEW ADMIT LAST NIGHT @192. AOX1. SPEECH WAS VERY NONSENSICAL. SON REPORTED PT WAS MORE CONFUSED THAN USUAL & SHE HAD BEEN TAKING AN ANTIBIOTIC FOR A UTI. PT WAS VERY IMPULSIVE & KEPT TRYING TO GET OOB W/O ASSISTANCE DURING HS MED PASS. ALSO UNABLE TO FOLLOW SIMPLE DIRECTIONS SUCH OPEN MOUTH OR SIT IN BED WHEN GIVING HS MEDICATION. HAD DIFFICULTY SWALLOWING PILLS & POCKETED THEM, GAVE IN APPLESAUCE & HAD TO HOLD A FEW FOR PT WAS UNABLE TO SWALLOW & KEPT POCKETING. CBG @HS WAS 178 PROVIDED 3 U HUMULIN R PER ORDERS. AT 0030 CBG WAS 78, NO COVERAGE NEEDED. GAVE PT A PUDDING TO MAKE SURE CBG DIDNT DROP TOO LOW. AT 0544 CBG @94, NO COVERAGE NEEDED. THIS AM PT IS MORE VERBAL, SPEECH IS CLEARER & MAKES MORE SENSE. SHE IS STILL AOX1, HOWEVER WHEN ASKED ABOUT PLACE, MONTH, PRESIDENT SHE STATES "I DON'T REALLY KNOW." WHEREAS LAST NIGHT SHE JUST SPOKE NONSENSE WHEN ASKED. VSS. NO S/S OF PAIN, N/V, OR DYSPNEA. PT DOES HAVE A WET, CONGESTED COUGH. SPO2 >90% ON RA & RESPIRATIONS ARE E/U. CALL LIGHT IN REACH, BED ALARM IN PLACE.
[2019-06-06 05:55] LABS: Albumin, Blood 2.3 g/dL (3.4-5.0); Anion Gap 6 mmol/L (6-16); BASOPHILS ABSOLUTE AUTO 0.02 K/mm3 (0.00-0.23); BASOPHILS PERCENT AUTO 0 % (0-2); Blood Urea Nitrogen 32 mg/dL (8-24); Bun/Creatinine Ratio 40.8 (12.0-20.0); CO2, Blood 25 mmol/L (21-32); Chloride, Blood 127 mmol/L (98-108); Creatinine, Blood 0.78 mg/dL (0.40-1.00); EOSINOPHILS ABSOLUTE AUTO 0.03 K/mm3 (0.00-0.68); EOSINOPHILS PERCENT AUTO 0 % (0-6); Glomerular Filtration Rate >60 (60-); Glucose, Blood 95 mg/dL (70-99); Hemoglobin 11.5 g/dL (11.5-16.0); IMMATURE GRAN ABSOLUTE AUTO 0.06 K/mm3 (0.00-0.10); IMMATURE GRAN PERCENT AUTO 1 % (0-1); LYMPHOCYTES ABSOLUTE AUTO 1.97 K/mm3 (0.84-5.20); LYMPHOCYTES PERCENT AUTO 16 % (21-46); MONOCYTES ABSOLUTE AUTO 1.01 K/mm3 (0.16-1.47); MONOCYTES PERCENT AUTO 8 % (4-13); Magnesium, Blood 1.8 mg/dL (1.6-2.4); Mean Corpuscular HGB 29.9 pg (26.0-34.0); Mean Corpuscular HGB Conc 30.3 g/dL (31.5-36.5); Mean Platelet Volume 9.3 fL (9.1-12.4); NEUTROPHILS ABSOLUTE AUTO 9.37 K/mm3 (1.96-9.15); NEUTROPHILS PERCENT AUTO 75 % (41-73); Phosphorus, Blood 2.1 mg/dL (2.5-4.9); Platelet Count 153 K/mm3 (150-400); Potassium, Blood 3.8 mmol/L (3.5-5.5); RDW Coefficient Variation 14.8 % (11.7-14.2); RDW Standard Deviation 53.8 fL (35.1-46.3); Red Blood Cell Count 3.84 M/mm3 (3.80-5.20); Sodium, Blood 158 mmol/L (136-145); White Blood Cell Count 12.46 K/mm3 (4.00-11.30)
[2019-06-06 05:56] LABS: Mean Corpuscular Volume 99 fL (80-100)
[2019-06-06 13:10] LABS: Anion Gap 5 mmol/L (6-16); Blood Urea Nitrogen 34 mg/dL (8-24); Bun/Creatinine Ratio 41.3 (12.0-20.0); CO2, Blood 25 mmol/L (21-32); Calcium, Blood 8.6 mg/dL (8.5-10.1); Chloride, Blood 125 mmol/L (98-108); Creatinine, Blood 0.82 mg/dL (0.40-1.00); Glomerular Filtration Rate >60 (60-); Glucose, Blood 220 mg/dL (70-99); Sodium, Blood 155 mmol/L (136-145)
--- NOTE | 2019-06-06 17:15 | NUR ---
SHIFT SUMMARY PATIENT DENIES PAIN, NAUSEA, AND SHORTNESS OF BREATH. PATIENT VERY CONFUSED AND ATTEMPTS TO GET OUT OF BED FREQUENTLY. PATIENT UP ONE ASSIST WITH GAIT BELT AND FWW TO BR OR CHAIR. PATIENT HAS PULLED TWO IV'S TODAY AND IS NOW IN SOFT WRIST RESTRAINTS TO PROTECT HER LINES. PATIENT IS TOLERATING WELL. SON AT BEDSIDE THIS EVENING. CALL LIGHT IN REACH.
[2019-06-07 05:06] LABS: BASOPHILS ABSOLUTE AUTO 0.01 K/mm3 (0.00-0.23); BASOPHILS PERCENT AUTO 0 % (0-2); EOSINOPHILS ABSOLUTE AUTO 0.06 K/mm3 (0.00-0.68); EOSINOPHILS PERCENT AUTO 1 % (0-6); Hematocrit 36.5 % (33.0-51.0); Hemoglobin 10.7 g/dL (11.5-16.0); IMMATURE GRAN ABSOLUTE AUTO 0.03 K/mm3 (0.00-0.10); IMMATURE GRAN PERCENT AUTO 0 % (0-1); LYMPHOCYTES ABSOLUTE AUTO 1.86 K/mm3 (0.84-5.20); LYMPHOCYTES PERCENT AUTO 22 % (21-46); MONOCYTES ABSOLUTE AUTO 0.61 K/mm3 (0.16-1.47); MONOCYTES PERCENT AUTO 7 % (4-13); Mean Corpuscular HGB 30.6 pg (26.0-34.0); Mean Corpuscular HGB Conc 29.3 g/dL (31.5-36.5); Mean Corpuscular Volume 104 fL (80-100); Mean Platelet Volume 9.6 fL (9.1-12.4); NEUTROPHILS ABSOLUTE AUTO 5.86 K/mm3 (1.96-9.15); NEUTROPHILS PERCENT AUTO 70 % (41-73); Platelet Count 116 K/mm3 (150-400); RDW Coefficient Variation 14.7 % (11.7-14.2); RDW Standard Deviation 56.8 fL (35.1-46.3); White Blood Cell Count 8.43 K/mm3 (4.00-11.30)
[2019-06-07 05:39] LABS: Alanine Aminotransfer (ALT/SGP 25 U/L (12-78); Albumin, Blood 1.9 g/dL (3.4-5.0); Albumin/Globulin Ratio 0.4 (0.8-1.8); Alk Phos 123 U/L (50-136); Anion Gap 8 mmol/L (6-16); Aspartate Aminotrans (AST/SGOT 40 U/L (12-37); Bilirubin, Total 1.7 mg/dL (0.1-1.0); Blood Urea Nitrogen 26 mg/dL (8-24); Bun/Creatinine Ratio 37.4 (12.0-20.0); CO2, Blood 20 mmol/L (21-32); Calcium, Blood 8.6 mg/dL (8.5-10.1); Chloride, Blood 125 mmol/L (98-108); Globulin, Blood 4.3 g/dL (2.2-4.0); Glomerular Filtration Rate >60 (60-); Glucose, Blood 152 mg/dL (70-99); Potassium, Blood 3.6 mmol/L (3.5-5.5); Sodium, Blood 153 mmol/L (136-145); Total Protein, Blood 6.2 g/dL (6.4-8.2)
--- NOTE | 2019-06-07 05:49 | NUR ---
SHIFT SUMMARY PATIENT ORIENTED TO SELF ONLY. PULLING AT IV LINES AND BILATERAL SOFT WRIST RESTRAINTS. PATIENT IMPULSIVE AND ATTEMPTING TO GET OUT OF BED THROUGHOUT HEAD RESIDENT. INCONTINENT OF BLADDER. Q2TURN. PRESSURE ULCER ON COCCYX WITH MEPILEX DRESSING C/D/I. LEFT AC IV PATENT. PATIENT TOOK PILLS CRUSHED IN APPLESAUCE WITHOUT ANY ISSUES. WILL CONTINUE TO MONITOR.
--- NOTE | 2019-06-07 19:07 | NUR ---
RESTRAINTS REMAIN PT PULLS HER IV'S AND LINES EVERY CHANCE SHE HAS. PT IS ABLE TO FEED HERSELF IF SOFT WRIST RESTRAINT REMOVED FOR MEALS BUT DOES REQUIRE CONSTANT SUPERVISION TO PREVENT HER PULLING IV'S OUT. NO ACUTE CHANGES NOTED THIS SHIFT, WILL CONTINUE TO MONITOR AND REPORT TO ONCOMING RN.
--- NOTE | 2019-06-08 04:55 | NUR ---
SHIFT SUMMARY NO ACUTE EVENTS OVERNIGHT. PATIENT VERY CONFUSED AND IMPULSIVE. PATIENT IN BILATERAL SOFT WRIST RESTRAINTS. PATIENT PULLING AT RESTRAINTS AND AT IV TUBING. PATIENT SLEPT LITTLE TO NONE THROUGHOUT THE NIGHT. PATIENT TAKES MEDS CRUSHED IN APPLESAUCE. INCONTINENT. VSS. WILL CONTINUE TO MONITOR
[2019-06-08 05:09] LABS: BASOPHILS ABSOLUTE AUTO 0.01 K/mm3 (0.00-0.23); BASOPHILS PERCENT AUTO 0 % (0-2); EOSINOPHILS ABSOLUTE AUTO 0.12 K/mm3 (0.00-0.68); EOSINOPHILS PERCENT AUTO 1 % (0-6); Hematocrit 37.1 % (33.0-51.0); Hemoglobin 11.3 g/dL (11.5-16.0); IMMATURE GRAN ABSOLUTE AUTO 0.04 K/mm3 (0.00-0.10); IMMATURE GRAN PERCENT AUTO 1 % (0-1); LYMPHOCYTES ABSOLUTE AUTO 1.97 K/mm3 (0.84-5.20); LYMPHOCYTES PERCENT AUTO 23 % (21-46); MONOCYTES ABSOLUTE AUTO 0.57 K/mm3 (0.16-1.47); MONOCYTES PERCENT AUTO 7 % (4-13); Mean Corpuscular HGB 30.5 pg (26.0-34.0); Mean Corpuscular HGB Conc 30.5 g/dL (31.5-36.5); Mean Platelet Volume 9.2 fL (9.1-12.4); NEUTROPHILS ABSOLUTE AUTO 5.82 K/mm3 (1.96-9.15); NEUTROPHILS PERCENT AUTO 68 % (41-73); Platelet Count 110 K/mm3 (150-400); RDW Coefficient Variation 14.4 % (11.7-14.2); RDW Standard Deviation 52.2 fL (35.1-46.3); Red Blood Cell Count 3.71 M/mm3 (3.80-5.20); White Blood Cell Count 8.53 K/mm3 (4.00-11.30)
[2019-06-08 05:10] LABS: Mean Corpuscular Volume 100 fL (80-100)
[2019-06-08 05:34] LABS: Alanine Aminotransfer (ALT/SGP 32 U/L (12-78); Albumin, Blood 2.1 g/dL (3.4-5.0); Albumin/Globulin Ratio 0.5 (0.8-1.8); Alk Phos 135 U/L (50-136); Anion Gap 8 mmol/L (6-16); Aspartate Aminotrans (AST/SGOT 45 U/L (12-37); Bilirubin, Total 1.8 mg/dL (0.1-1.0); Blood Urea Nitrogen 20 mg/dL (8-24); Bun/Creatinine Ratio 31.6 (12.0-20.0); CO2, Blood 23 mmol/L (21-32); Calcium, Blood 8.6 mg/dL (8.5-10.1); Chloride, Blood 117 mmol/L (98-108); Creatinine, Blood 0.63 mg/dL (0.40-1.00); Globulin, Blood 4.4 g/dL (2.2-4.0); Glomerular Filtration Rate >60 (60-); Glucose, Blood 144 mg/dL (70-99); Potassium, Blood 3.4 mmol/L (3.5-5.5); Sodium, Blood 148 mmol/L (136-145); Total Protein, Blood 6.5 g/dL (6.4-8.2)
[2019-06-08] MEDS ORDERED: FAMO20 PO (13:45)
--- NOTE | 2019-06-08 14:00 | NUR ---
report given to torsten collier. answer all questions. patient no longer in restraints. aware son will come about 5pm to pick her up and take her there.
--- NOTE | 2019-06-08 17:16 | NUR ---
SON BRINGS CLOTHES. PATIENT ASSISTED. REVIEWED D'[facility] W/SON AND GIVEN FOLDER FOR [facility] TO SON TO DELIVER.IN W/C W/PEDIATRIC LPN TAKING DOWN TO CAR.
== END 2019-06-08 17:16 | disposition home or self-care (01) | DRG 682 ==
LOC: ER 15:45 → MEDS 15:46 → ER 15:46 → MEDS 18:52 → ENPENDDIS 06-08 12:19 → MEDS 06-08 17:16
PROVIDERS: ADMIT Internal Medicine Endocrinology, Diabetes & Metabolism
DX: N17.9 Acute kidney failure, unspecified (principal); G92 Toxic encephalopathy; E87.1 Hypo-osmolality and hyponatremia; F02.81 Dementia in other diseases classified elsewhere, unspecified severity, with behavioral disturbance; E87.0 Hyperosmolality and hypernatremia; L03.116 Cellulitis of left lower limb; L03.115 Cellulitis of right lower limb; E11.65 Type 2 diabetes mellitus with hyperglycemia; G30.9 Alzheimer's disease, unspecified; Z87.891 Personal history of nicotine dependence; Z66 Do not resuscitate; E86.0 Dehydration; L89.152 Pressure ulcer of sacral region, stage 2; I10 Essential (primary) hypertension; B35.4 Tinea corporis; Z79.4 Long term (current) use of insulin; Z78.1 Physical restraint status; F32.9 Major depressive disorder, single episode, unspecified
CPT/HCPCS: 36415; 70450; 80048; 80053; 80069; 82550; 82947; 83735; 85025; 92610; 96360; 99285-25; J1650; J1815; J3480; J7030

== ENCOUNTER → 2019-06-05 | Outpatient (CLI) | payer MEDICARE ==
[2019-06-05 15:02] LABS: BASOPHILS ABSOLUTE AUTO 0.02 K/mm3 (0.00-0.23); BASOPHILS PERCENT AUTO 0 % (0-2); EOSINOPHILS PERCENT AUTO 0 % (0-6); Hematocrit 40.7 % (33.0-51.0); Hemoglobin 12.9 g/dL (11.5-16.0); IMMATURE GRAN ABSOLUTE AUTO 0.05 K/mm3 (0.00-0.10); IMMATURE GRAN PERCENT AUTO 0 % (0-1); LYMPHOCYTES PERCENT AUTO 12 % (21-46); MONOCYTES ABSOLUTE AUTO 0.99 K/mm3 (0.16-1.47); MONOCYTES PERCENT AUTO 7 % (4-13); Mean Corpuscular HGB 30.6 pg (26.0-34.0); Mean Corpuscular HGB Conc 31.7 g/dL (31.5-36.5); Mean Corpuscular Volume 96 fL (80-100); Mean Platelet Volume 9.4 fL (9.1-12.4); NEUTROPHILS ABSOLUTE AUTO 11.27 K/mm3 (1.96-9.15); NEUTROPHILS PERCENT AUTO 81 % (41-73); Platelet Count 215 K/mm3 (150-400); RDW Coefficient Variation 14.8 % (11.7-14.2); RDW Standard Deviation 52.8 fL (35.1-46.3); Red Blood Cell Count 4.22 M/mm3 (3.80-5.20); White Blood Cell Count 13.93 K/mm3 (4.00-11.30)
[2019-06-05 15:11] LABS: Albumin, Blood 2.8 g/dL (3.4-5.0); Albumin/Globulin Ratio 0.5 (0.8-1.8); Bilirubin, Total 1.7 mg/dL (0.1-1.0); Calcium, Blood 9.9 mg/dL (8.5-10.1); Creatinine, Blood 1.42 mg/dL (0.40-1.00); Globulin, Blood 5.4 g/dL (2.2-4.0); Potassium, Blood 4.2 mmol/L (3.5-5.5); Total Protein, Blood 8.2 g/dL (6.4-8.2)
== END | disposition home or self-care (01) ==
LOC: LAB EV 14:56 → LAB SHORT 14:56
PROVIDERS: Physician Assistant
DX: R73.9 Hyperglycemia, unspecified (principal)
CPT/HCPCS: 80053; 85025

== ENCOUNTER → 2019-07-19 | Outpatient (CLI) | payer MEDICARE ==
[~2019-07-19] MED LIST changes: +CEPH500 PO; +FAMO20 PO; +FURO40 PO; +NITR100CA PO; +NYSTRITC TOP; +POTCHL20ER PO
[2019-07-20 14:36] LABS: Appearance, Urine Hazy (Clear); Bilirubin, Urine Neg (Neg); Blood, Urine 2+ (Neg); Color, Urine Yellow (P-Yellow); Glucose Qualitative, Urine Neg (Neg); Ketones, Urine Neg (Neg); Leukocyte Esterase, Urine 2+ (Neg); Nitrite, Urine Pos (Neg); Protein, Urine Neg (Neg); Urobilinogen, Urine NORM (Normal)
[2019-07-20 15:08] LABS: Bacteria Many /hpf; Squamous Epithelial Cells Few /hpf (Few)
== END | disposition home or self-care (01) ==
LOC: LAB SHORT 08:15 → LAB 08:15
PROVIDERS: Internal Medicine
DX: N39.0 Urinary tract infection, site not specified (principal)
CPT/HCPCS: 81001; 87077; 87086; 87186

== ENCOUNTER 2019-08-06 16:44 | Emergency (ER) | payer MEDICARE ==
[~2019-08-06] VITALS: Ht 162.6 cm; Wt 68.0 kg
[~2019-08-06 16:44] MED LIST changes: -CEPH500 PO
[2019-08-06 19:07] LABS: Source, Urine Clean Catch
[2019-08-06 19:26] LABS: Appearance, Urine Clear (Clear); Bilirubin, Urine Neg (Neg); Blood, Urine 1+ (Neg); Color, Urine Yellow (P-Yellow); Glucose Qualitative, Urine Neg (Neg); Ketones, Urine Neg (Neg); Leukocyte Esterase, Urine 2+ (Neg); Nitrite, Urine Pos (Neg); Protein, Urine Neg (Neg); Urobilinogen, Urine NORM (Normal)
[2019-08-06 19:32] LABS: Bacteria Many /hpf; Squamous Epithelial Cells Mod /hpf (Few)
[2019-08-06] MEDS ORDERED: CEPH500 PO (19:44)
== END 2019-08-06 20:23 | disposition home or self-care (01) ==
LOC: ER 16:44
PROVIDERS: Emergency Medicine
DX: N39.0 Urinary tract infection, site not specified (principal); Z88.0 Allergy status to penicillin; Z88.5 Allergy status to narcotic agent; Z88.8 Allergy status to other drugs, medicaments and biological substances; Z79.899 Other long term (current) drug therapy; Z79.4 Long term (current) use of insulin; W18.30XA Fall on same level, unspecified, initial encounter; K21.9 Gastro-esophageal reflux disease without esophagitis
CPT/HCPCS: 71046; 81001; 87077; 87086; 87186; 99283-25; A9270-GY; P9612

== ENCOUNTER → 2019-09-23 | Outpatient (CLI) | payer MEDICARE ==
[~2019-09-23] MED LIST changes: +ACET325 PO; +CEPH500 PO; +DOCU100 PO; +HALO2 PO; +Humalog Mi100 UNIT/4; +OMEP20ER PO
== END ==
LOC: LAB 19:00 → LAB SHORT 19:00
DX: A04.72 Enterocolitis due to Clostridium difficile, not specified as recurrent (principal)
CPT/HCPCS: 87493

== ENCOUNTER 2019-09-25 19:47 | Observation (INO) | payer MEDICARE ==
[~2019-09-25] VITALS: Ht 167.6 cm; Wt 99.8 kg
[~2019-09-25 19:47] MED LIST changes: -ACET325 PO; -DOCU100 PO; -HALO2 PO; -Humalog Mi100 UNIT/4; -OMEP20ER PO
[2019-09-25 20:44] LABS: BASOPHILS ABSOLUTE AUTO 0.02 K/mm3 (0.00-0.23); BASOPHILS PERCENT AUTO 0 % (0-2); EOSINOPHILS ABSOLUTE AUTO 0.16 K/mm3 (0.00-0.68); EOSINOPHILS PERCENT AUTO 2 % (0-6); IMMATURE GRAN ABSOLUTE AUTO 0.05 K/mm3 (0.00-0.10); IMMATURE GRAN PERCENT AUTO 1 % (0-1); LYMPHOCYTES PERCENT AUTO 21 % (21-46); MONOCYTES ABSOLUTE AUTO 1.05 K/mm3 (0.16-1.47); MONOCYTES PERCENT AUTO 12 % (4-13); Mean Corpuscular HGB 30.1 pg (26.0-34.0); Mean Corpuscular HGB Conc 32.3 g/dL (31.5-36.5); Mean Corpuscular Volume 93 fL (80-100); Mean Platelet Volume 8.9 fL (9.1-12.4); NEUTROPHILS ABSOLUTE AUTO 5.74 K/mm3 (1.96-9.15); NEUTROPHILS PERCENT AUTO 64 % (41-73); Platelet Count 160 K/mm3 (150-400); RDW Coefficient Variation 15.1 % (11.7-14.2); RDW Standard Deviation 51.1 fL (35.1-46.3); Red Blood Cell Count 3.32 M/mm3 (3.80-5.20); White Blood Cell Count 8.92 K/mm3 (4.00-11.30)
[2019-09-25 20:57] LABS: Alanine Aminotransfer (ALT/SGP 21 U/L (12-78); Albumin/Globulin Ratio 0.5 (0.8-1.8); Alk Phos 171 U/L (50-136); Anion Gap 6 mmol/L (6-16); Aspartate Aminotrans (AST/SGOT 46 U/L (12-37); Bilirubin, Total 1.1 mg/dL (0.1-1.0); Blood Urea Nitrogen 8 mg/dL (8-24); Bun/Creatinine Ratio 12.9 (12.0-20.0); CO2, Blood 25 mmol/L (21-32); Calcium, Blood 8.2 mg/dL (8.5-10.1); Chloride, Blood 104 mmol/L (98-108); Creatinine, Blood 0.62 mg/dL (0.40-1.00); Globulin, Blood 4.1 g/dL (2.2-4.0); Glomerular Filtration Rate >60 (60-); Glucose, Blood 104 mg/dL (70-99); Potassium, Blood 4.4 mmol/L (3.5-5.5); Sodium, Blood 135 mmol/L (136-145); Total Protein, Blood 6.1 g/dL (6.4-8.2); Troponin I 0.026 ng/mL (0.000-0.040)
[2019-09-25 22:16] LABS: Source, Urine Catheter
[2019-09-25 22:25] LABS: Appearance, Urine Hazy (Clear); Bilirubin, Urine Neg (Neg); Blood, Urine 1+ (Neg); Color, Urine Amber (P-Yellow); Glucose Qualitative, Urine Neg (Neg); Ketones, Urine Neg (Neg); Leukocyte Esterase, Urine 3+ (Neg); Nitrite, Urine Pos (Neg); Protein, Urine Neg (Neg); Urobilinogen, Urine NORM (Normal)
[2019-09-25 22:31] LABS: Bacteria Many /hpf; Red Blood Cells, Urine 0-2 /hpf (0-2); Squamous Epithelial Cells Mod /hpf (Few); White Blood Cells, Urine 50-100 /hpf (0-5)
[2019-09-25] MEDS ORDERED: Humalog Mi100 UNIT/4 (23:52)
[2019-09-25] MEDS ORDERED: OMEP20ER PO (23:54)
[2019-09-25] MEDS ORDERED: DOCU100 PO (23:56)
[2019-09-25] MEDS ORDERED: HALO2 PO (23:57)
[2019-09-26] MEDS ORDERED: ACET325 PO (09:59)
== END 2019-09-26 12:35 ==
LOC: ER 19:47 → ERHOLD 19:48
PROVIDERS: Physician Assistant; ADMIT Internal Medicine
DX: S01.01XA Laceration without foreign body of scalp, initial encounter (principal); W18.30XA Fall on same level, unspecified, initial encounter; M48.54XA Collapsed vertebra, not elsewhere classified, thoracic region, initial encounter for fracture; G30.9 Alzheimer's disease, unspecified; K74.60 Unspecified cirrhosis of liver; E11.9 Type 2 diabetes mellitus without complications; K21.9 Gastro-esophageal reflux disease without esophagitis; Z66 Do not resuscitate; Z88.0 Allergy status to penicillin; Z88.5 Allergy status to narcotic agent; Z88.8 Allergy status to other drugs, medicaments and biological substances; Z79.4 Long term (current) use of insulin; Z79.899 Other long term (current) drug therapy; R60.1 Generalized edema; F02.81 Dementia in other diseases classified elsewhere, unspecified severity, with behavioral disturbance
CPT/HCPCS: 36415; 51702; 70450; 71046; 72125; 74177; 80053; 81001; 83880; 84484; 85025; 87077; 87086; 87186; 93005; 93010; 96374; 99285-25; G0378; J1940; Q9967